=== PATIENT | male | born 2000 | race Caucasian/White ===

== ENCOUNTER → 2020-03-01 | Outpatient (REF) ==
--- NOTE | 2020-03-01 12:37 | Diagnostic Imaging Report ---
Indication: Preemployment physical. Findings: The lungs are clear Cardiomediastinal and hilar contours normal. No failure, effusion or pneumothorax. The bony structures unremarkable. Impression: Normal 2 view chest. Dictated by: Dictated on workstation # [id number]
== END ==
LOC: OCC 12:12
PROVIDERS: ATTEND Nurse Practitioner Family
DX: Z02.1 Encounter for pre-employment examination (principal)
CPT/HCPCS: 71046